=== PATIENT | female | born 1970 | race African-American/Black ===

== ENCOUNTER → 2017-03-09 | Outpatient (CLI) | payer OTHER | LOC: RAD 08:41 | DX: Z12.31 Encounter for screening mammogram for malignant neoplasm of breast (principal) ==

== ENCOUNTER → 2017-07-27 | Outpatient (CLI) | payer OTHER | LOC: RAD 12:04 | DX: M47.896 Other spondylosis, lumbar region (principal); M47.892 Other spondylosis, cervical region ==

== ENCOUNTER → 2021-04-30 | Outpatient (CLI) | payer OTHER | LOC: RAD 09:43 | PROVIDERS: ATTEND Nurse Practitioner | DX: M25.562 Pain in left knee (principal) ==

== ENCOUNTER → 2021-05-13 | Outpatient (CLI) | payer OTHER | LOC: ULTRA 07:51 | PROVIDERS: ATTEND Nurse Practitioner | DX: M25.462 Effusion, left knee (principal) ==